=== PATIENT | female | born 1990 | race Caucasian/White ===

== ENCOUNTER 2024-12-01 23:29 | Emergency (ER) | payer BC ==
[~2024-12-01] VITALS: Ht 165.1 cm; Wt 90.7 kg
[2024-12-02 00:06] LABS: PLATELET COUNT (AUTO) 265 K/uL (150-450); RED BLOOD CELL COUNT(AUTO) 5.22 MIL/uL (4.0-5.2); RED CELL DISTRIBUTION WIDTH 13.5 % (11.5-15.0); WHITE BLOOD COUNT (AUTO) 10.1 K/uL (4.3-11.0)
[2024-12-02] MEDS: IV NS 0.9% 1,000 ML BAG IV ONE (00:08)
[2024-12-02] MEDS ORDERED: ONDANSETRON HCL/PF 4 MG/2 ML VIAL ONE (00:09)
[2024-12-02] MEDS ORDERED: MORPHINE SULFATE INJ 4 MG/ML DISP.SYRIN ONE (00:09)
[2024-12-02] MEDS: ONDANSETRON HCL/PF 4 MG/2 ML VIAL IVP ONE (00:12)
[2024-12-02 00:13] LABS: CALCIUM, SERUM 9.4 mg/dL (8.5-10.1); CREATININE 1.0 mg/dL (0.6-1.3); SODIUM SERUM 139 mmol/L (136-145); UREA NITROGEN, BLOOD 11 mg/dL (7-18)
[2024-12-02 00:19] LABS: ASPARTATE AMINOTRANSFERASE 39 U/L (15-37); TOTAL PROTEIN, SERUM 7.8 g/dL (6.4-8.2)
[2024-12-02] MEDS: MORPHINE SULFATE INJ 2 MG/ML DISP.SYRIN IV ONE (00:19)
[2024-12-02 00:41] LABS: APPEARANCE,URINE SLIGHTLY CLOUDY (CLEAR); BLOOD, URINE NEGATIVE Ery/uL (NEGATIVE); LEUKOCYTE ESTERASE ,URINE 2+ (NEGATIVE); NITRITE, URINE NEGATIVE (NEGATIVE); UGLUCOSE NEGATIVE (NEGATIVE)
[2024-12-02 00:49] LABS: ADD URINE CULTURE YES; PREGNANCY TEST URINE QUAL NEGATIVE (NEGATIVE); SQUAMOUS EPITHELIAL CELL,UR Moderate /HPF (None Seen)
[2024-12-02] MEDS ORDERED: NITR100C6 PO (01:58)
[2024-12-02 02:15] VITALS: BP 114/72; TEMP 98.6; O2SAT 100
== END 2024-12-02 02:16 | disposition home or self-care (01) ==
LOC: ER 23:33
DX: N39.0 Urinary tract infection, site not specified (principal); F41.9 Anxiety disorder, unspecified; R10.9 Unspecified abdominal pain; R11.10 Vomiting, unspecified
CPT/HCPCS: 99285; 74176; 71045; 93005; 36415; 96374; 96361; 96375; 85025; 87086; 84703; 81001; J2270; J2405